=== PATIENT | male | born 2005 | race Caucasian/White ===

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

== ENCOUNTER 2023-12-14 15:51 | Outpatient (CLI) | payer BC | END 2023-12-14 15:52 | disposition home or self-care (01) | LOC: MADRAD 15:51 | PROVIDERS: ATTEND Registered Nurse | DX: S69.92XA Unspecified injury of left wrist, hand and finger(s), initial encounter (principal) ==

== ENCOUNTER 2025-04-02 21:46 | Emergency (ER) | payer BC, OTHER ==
[2025-04-02] MEDS ORDERED: Ibuprofen 600 MG TAB ONE (22:07)
== END 2025-04-02 23:24 | disposition home or self-care (01) ==
LOC: MADERS 21:46
DX: M62.830 Muscle spasm of back (principal); V89.2XXA Person injured in unspecified motor-vehicle accident, traffic, initial encounter; Y93.89 Activity, other specified
CPT/HCPCS: 72070; 99284